=== PATIENT | female | born 1985 | race Caucasian/White ===

== ENCOUNTER 2018-01-04 15:46 | Emergency (ER) | payer OTHER ==
[~2018-01-04] VITALS: Ht 172.7 cm; Wt 68.0 kg
--- NOTE | 2018-01-04 16:06 | NUR ---
HOSPITAL SANDWICH PROVIEDED PER PT REQUEST
[2018-01-04] MEDS ORDERED: HYDROCODONE/APAP 10-325 MG TABLET PO ONE (16:30)
[2018-01-04] MEDS ORDERED: HYDROCODONE/APAP 10-325 MG TABLET ONE (16:37)
--- NOTE | 2018-01-04 16:46 | NUR ---
Patient discharged to home in stable conditon. Written and verbal after care instructions given. Patient verbalizes understanding of instructions.
[2018-01-04] MEDS ORDERED: risperiDONE 2 MG TABLET PO SCH (21:00)
== END 2018-01-04 16:47 | disposition home or self-care (01) ==
LOC: ER 15:48
DX: F29 Unspecified psychosis not due to a substance or known physiological condition (principal); M54.9 Dorsalgia, unspecified
CPT/HCPCS: 99284; A4663